=== PATIENT | female | born 1955 | race Caucasian/White ===

== ENCOUNTER → 2017-12-09 | Outpatient (CLI) | payer BC ==
--- NOTE | 2017-12-09 09:43 | WOMENS IMAGING REPORT ---
EXAM DESCRIPTION: U/S ABDOMEN LIMITED COMPLETED DATE/TIME: 12/09/2017 9:28 am REASON FOR STUDY: NAUSEA R11.0; EPIGASTRIC PAIN; R10.13 R11.0 NAUSEA R10.13 EPIGASTRIC PAIN COMPARISON: CT chest 03/03/2012 TECHNIQUE: Dynamic and static grayscale images acquired of the abdomen and recorded on PACS. Additio nal selected color Doppler and spectral images recorded. LIMITATIONS: None. FINDINGS: PANCREAS: Midline pancreas unremarkable LIVER: No masses. Echotexture normal. LIVER VASCULATURE: Normal directional flow of the main portal vein and hepatic veins. GALLBLADDER: Surgically absent ULTRASOUND-DETECTED DIEHL'S SIGN: Not applicable INTRAHEPATIC DUCTS AND COMMON DUCT: CBD and intrahepatic ducts normal caliber. No filling defects. INFERIOR VENA CAVA: Not well seen AORTA: Not well seen RIGHT KIDNEY: Normal size. Normal echogenicity. No solid or suspicious masses. No hydronephrosis. No calcifications. PERITONEAL AND RIGHT PLEURAL SPACE: No ascites or effusions. OTHER: No other significant findings. IMPRESSION: Post cholecystectomy. Midline pancreas unremarkable. No biliary ductal dilatation TECHNICAL DOCUMENTATION: JOB ID: [id number]- All Rights Reserved Reading location - IP/workstation name: [email or web address]
== END ==
LOC: WI 09:01
PROVIDERS: ATTEND Physician Assistant Surgical
DX: R11.0 Nausea (principal); R10.13 Epigastric pain
CPT/HCPCS: 76705

== ENCOUNTER 2019-09-21 12:30 | Emergency (ER) | payer BC ==
--- NOTE | 2019-09-21 13:07 | ER Document Report ---
ED Medical Screen (RME) - General Chief Complaint: Chest Pain Stated Complaint: CHEST DISCOMFORT Time Seen by Provider: 09/21/19 12:57 Primary Care Provider: GAYE NORTON PA-C [Primary Care Provider] - Follow up as needed Mode of Arrival: Ambulatory Information source: Patient Notes: 63-year-old female patient presents emergency department chief complaint of chest pressure. Patient reports symptoms have been ongoing for the last few days. She states this morning the pain or pressure got worse, had associated nausea, dizziness and nearly passed out. Exam: Lung sounds clear and equal bilaterally. Heart sounds S1-S2 present, normal rate, normal rhythm. I have greeted and performed a rapid initial assessment of this patient. A comprehensive ED assessment and evaluation of the patient, analysis of test results and completion of the medical decision making process will be conducted by additional ED providers. I have specifically instructed the patient or family members with the patient to immediately return to any nursing staff should anything change in the patient's condition or with their chief complaint. TRAVEL OUTSIDE OF THE [place] IN LAST 30 DAYS: No - Related Data Allergies/Adverse Reactions: No Known Allergies Allergy (Verified 09/21/19 12:56) Past Medical History Endocrine Medical History: Reports: Hx Hypothyroidism Past Surgical History: Reports: Hx Cholecystectomy Physical Exam - Vital signs Vitals: Temp Pulse Resp BP Pulse Ox 97.9 F 86 16 151/74 H 95 09/21/19 12:53 09/21/19 12:53 09/21/19 12:53 09/21/19 12:53 09/21/19 12:53 Course - Vital Signs Vital signs: Temp Pulse Resp BP Pulse Ox 97.9 F 86 16 151/74 H 95 09/21/19 12:53 09/21/19 12:53 09/21/19 12:53 09/21/19 12:53 09/21/19 12:53 Doctor's Discharge - Discharge Referrals: GAYE NORTON PA-C [Primary Care Provider] - Follow up as needed
--- NOTE | 2019-09-21 13:49 | RADIOLOGY REPORT (SQ) ---
EXAM DESCRIPTION: CHEST 2 VIEWS COMPLETED DATE/TIME: 09/21/2019 1:22 pm REASON FOR STUDY: chest discomfort COMPARISON: 04/07/2016. EXAM PARAMETERS: NUMBER OF VIEWS: two views TECHNIQUE: Digital Frontal and Lateral radiographic views of the chest acquired. RADIATION DOSE: NA LIMITATIONS: none FINDINGS: LUNGS AND PLEURA: No opacities, masses or pneumothorax. No pleural effusion. MEDIASTINUM AND HILAR STRUCTURES: No masses or contour abnormalities. HEART AND VASCULAR STRUCTURES: Heart normal size. No evidence for failure. BONES: No acute findings. HARDWARE: None in the chest. OTHER: No other significant finding. IMPRESSION: NO ACUTE RADIOGRAPHIC FINDING IN THE CHEST. TECHNICAL DOCUMENTATION: JOB ID: [id number] [employer] All Rights Reserved Reading location - IP/workstation name: [email or web address]
[2019-09-21 13:54] LABS: ABSOLUTE LYMPHOCYTES (AUTO) 1.5 10^3/uL (0.5-4.7); ABSOLUTE MONOCYTES (AUTO) 0.5 10^3/uL (0.1-1.4); ABSOLUTE NEUT (AUTO) 3.9 10^3/uL (1.7-8.2); BASOPHILS % (AUTO) 0.6 % (0-2); EOSINOPHILS % (AUTO) 0.8 % (0-6); HEMATOCRIT 40.9 % (36.0-47.0); HEMOGLOBIN 13.9 g/dL (12.0-15.5); MEAN CORPUSCULAR HEMOGLOBIN 29.1 pg (27.0-33.4); MEAN CORPUSCULAR VOLUME 86 fl (80-97); MONOCYTES % (AUTO) 7.8 % (3-13); PLATELET COUNT 210 10^3/uL (150-450); RED BLOOD COUNT 4.77 10^6/uL (3.72-5.28); RED CELL DISTRIBUTION WIDTH 13.4 % (11.5-14.0); SEGMENTED NEUTROPHILS % (AUTO) 65.8 % (42-78); TOTAL CELLS COUNTED % (AUTO) 100 %
[2019-09-21 14:10] LABS: ALBUMIN 4.1 g/dL (3.5-5.0); ALKALINE PHOSPHATASE 84 U/L (38-126); ANION GAP 7 (5-19); ASPARTATE AMINO TRANSFERASE 30 U/L (14-36); BILIRUBIN,DIRECT 0.2 mg/dL (0.0-0.4); BILIRUBIN,TOTAL 0.5 mg/dL (0.2-1.3); BLOOD UREA NITROGEN 17 mg/dL (7-20); CALCIUM 9.8 mg/dL (8.4-10.2); CARBON DIOXIDE 28 mmol/L (22-30); CHLORIDE 104 mmol/L (98-107); GLUCOSE 100 mg/dL (75-110); POTASSIUM 4.9 mmol/L (3.6-5.0); TOTAL PROTEIN 7.1 g/dL (6.3-8.2)
[2019-09-21] MEDS ORDERED: NITROGLYCERIN 0.4 MG/TAB 25 TAB/BOTTLE SL PRN (16:26)
--- NOTE | 2019-09-21 16:30 | ER Document Report ---
ED General - General Chief Complaint: Chest Pain Stated Complaint: CHEST DISCOMFORT Time Seen by Provider: 09/21/19 12:57 Primary Care Provider: GAYE NORTON PA-C [COMMUNITY BASED STAFF] - Follow up as needed Mode of Arrival: Ambulatory TRAVEL OUTSIDE OF THE [place] IN LAST 30 DAYS: No - Related Data Allergies/Adverse Reactions: No Known Allergies Allergy (Verified 09/21/19 12:56) Home Medications: synthroid 0.125 Past Medical History - General Information source: Patient - Social History Smoking Status: Former Smoker Family History: Reviewed & Not Pertinent Patient has suicidal ideation: No Patient has homicidal ideation: No Endocrine Medical History: Reports: Hx Hypothyroidism Past Surgical History: Reports: Hx Cholecystectomy Physical Exam - Vital signs Vitals: Temp Pulse Resp BP Pulse Ox 97.9 F 86 16 151/74 H 95 09/21/19 12:53 09/21/19 12:53 09/21/19 12:53 09/21/19 12:53 09/21/19 12:53 - Notes Notes: Patient presents emerge department with chest pain that started earlier today. Pain is located left anterior chest and under her shoulder. Describes as a pressure sensation. Gets short of breath and diaphoretic with a little bit of n ausea but no vomiting. She also had a heart rapid heart rate with this. The pain did not seem to change at all with movements. She reports similar episodes on Saturday and Saturday that felt like indigestion that she took Gas-X for with temporary relief but then later told me that the pain never went away. Is somewhat vague about her symptoms said the pain lasted all day but says is been like increasing and decreasing for the past 2 days. Not having discomfort yesterday but felt increasing fatigue and slept most of the day. She denies any fevers or cough associated with this. He did report feeling slightly lightheaded earlier today no abdominal pain or diarrhea His medical history significant for thyroid disease and elevated cholesterol diet-controlled no diabetes hypertension or heart disease Social history smokes but quit years ago no alcohol Family history dad and brothers had heart disease in their early 60s Review of systems pertinent positives and negatives in HPI otherwise all the systems were reviewed and acutely negative Surgical history includes cholecystectomy PHYSICIAN EXAM -vital signs are noted triage note and note from triage reviewed GENERAL: Well-appearing, well-nourished and in __no acute distress____ HEAD: Atraumatic, normocephalic. EYES: Pupils equal round and reactive to light, extraocular movements intact, sclera anicteric, conjunctiva are normal. ENT: nares patent, oropharynx clear without exudates. Moist mucous membranes. NECK: supple without lymphadenopathy LUNGS: Breath sounds clear to auscultation bilaterally and equal. No wheezes rales or rhonchi. HEART: Regular rate and rhythm without murmurs ABDOMEN: Soft, nontender, normoactive bowel sounds. EXTREMITIES: No deformity, no edema. NEUROLOGICAL: Alert and oriented x4. Cranial nerves he has symmetrical smile facies and shoulder shrug. His motor strength is 5/5 bilaterally in the upper and lower extremities. Toes downgoing. Sensation is intact to light touch is a negative Romberg PSYCH: Normal mood, normal affect. SKIN: Warm, Dry, normal turgor, no rashes or lesions noted. BACK-nontender in the midline Differential diagnosis angina reflux hyper thyroid Course - Re-evaluation Re-evalutation: 09/21/19 21:35 ED patient is remained stable she been on surveillance monitor with notes of arrhythmias aorta nitroglycerin but she indicates that her pain had resolved but no additional signs of pain. Her labs been reviewed he states the TSH is slightly low but her free T4 was normal Medical decision making patient presents with pain over the left anterior chest that is been pretty much constant for the test 2 to 3 days. He has no significant risk factors for heart disease her heart score places her at low risk looks well and I think she can be discharged home. I see no life- threatening cause of her chest pain I discussed the scoring system with the patient and the risk of cardiovascular within the next 2 months. She is comfortable going home with follow-up with her family doctor At this time there is no indication for admission. I have discussed the findings with patient/family with return precautions and follow-up recommendations. Verbal discharge instructions given at the bedside and opportunity for questions given. Medication warnings were given if indicated. Patient is in agreement with this plan and has verbalized understanding of return precautions and the need for primary care follow-up as directed.. - Vital Signs Vital signs: Temp Pulse Resp BP Pulse Ox 97.7 F 86 16 122/65 99 09/21/19 18:00 09/21/19 12:53 09/21/19 18:00 09/21/19 18:00 09/21/19 18:00 - Laboratory Result Diagrams: 09/21/19 13:38 09/21/19 13:38 Laboratory results interpreted by me: 09/21/19 15:58 TSH 0.06 L - EKG Interpretation by Me Additional EKG results interpreted by me: 09/21/19 16:25 Her initial EKG shows a normal sinus rhythm with a rate of 97 normal axis and QRS the QT prolonged at 0.46 this is new from previous EKG from 201509/21/19 16:55 EKG again shows a normal sinus rhythm no change from the first Discharge - Discharge Clinical Impression: Palpitations Chest pain Qualifiers: Chest pain type: other chest pain Qualified Code(s): R07.89 - Other chest pain Condition: Stable Disposition: HOME, SELF-CARE Instructions: Chest Pain of Unclear Cause ([facility]) Additional Instructions: Please review the discharge instructions, they will tell you about your disease/injury and what you need to return to the ED for Return to the ED if you feel worse or can follow-up with your family doctor Avoid fatty greasy foods Return for shortness of breath persistent rapid heart rate fever greater than 101 Follow-up with your family doctor on as scheduled Referrals: GAYE NORTON PA-C [COMMUNITY BASED STAFF] - Follow up as needed
--- NOTE | 2019-09-21 17:14 | EKG REPORT ---
SEVERITY:- NORMAL ECG - SINUS RHYTHM : Confirmed by: Ninfa Guaman MD 21-Sep-2019 17:14:09
--- NOTE | 2019-09-21 17:14 | EKG REPORT ---
SEVERITY:- ABNORMAL ECG - SINUS RHYTHM LEFT VENTRICULAR HYPERTROPHY : Confirmed by: Ninfa Guaman MD 21-Sep-2019 17:14:06
[2019-09-21 19:05] VITALS: BP 122/65
== END 2019-09-21 19:05 | disposition home or self-care (01) ==
LOC: ER 12:30
DX: R00.2 Palpitations (principal); R07.89 Other chest pain; M25.512 Pain in left shoulder; Z87.891 Personal history of nicotine dependence
CPT/HCPCS: 36415; 71046; 80053; 83690; 84439; 84443; 84484; 85025; 93005; 93010; 99285

== ENCOUNTER 2019-11-05 08:58 | Day surgery (SDC) | payer BC ==
[~2019-11-05 08:58] MED LIST: LACTATED RINGERS 1000 ML IV PRN
[2019-11-05] MEDS ORDERED: CEFAZOLIN 1 GM/D5W RTU 1 GM/50 ML RTUPB IV ONE (09:18)
[2019-11-05] MEDS ORDERED: MIDAZOLAM 2 MG/2 ML INJ ONE (10:00)
[2019-11-05] MEDS ORDERED: FENTANYL CITRATE INJ/PF 100 MCG/2 ML AMPUL ONE (10:00)
[2019-11-05] MEDS ORDERED: PROPOFOL INJ 200 MG/20 ML VIAL IV ONE (10:01)
[2019-11-05] MEDS ORDERED: LIDOCAINE 2% INJ-PF (20 MG/ML) 10 ML AMPUL ONE (10:01)
[2019-11-05] MEDS ORDERED: BUPIVACAINE INJ/PF LIPOSOME/PF 266 MG/20 ML SDV ONE (10:08)
[2019-11-05] MEDS ORDERED: BUPIVACAINE HCL 0.5%-EPI 1:200000 INJ/PF 30 ML VIAL ONE (10:08)
[2019-11-05] MEDS ORDERED: BUPIVACAINE HCL 0.25 % INJ/PF (2.5 MG/1 ML) 30 ML VIAL ONE (10:08)
[2019-11-05] MEDS ORDERED: LIDOCAINE 1%/EPINEPHRINE INJ 20 ML VIAL ONE (10:38)
[2019-11-05] MEDS ORDERED: DIPHENHYDRAMINE HCL 50 MG/ML VIAL IV PRN (10:40)
[2019-11-05] MEDS ORDERED: PROMETHAZINE HCL INJ 25 MG/1 ML VIAL IV PRN ×2 (10:40)
[2019-11-05] MEDS ORDERED: FENTANYL CITRATE INJ/PF 100 MCG/2 ML AMPUL IV PRN ×3 (10:40)
[2019-11-05] MEDS ORDERED: OXYCODONE-ACETAMINOPHEN 5-325 MG TABLET PO PRN ×3 (10:40→11:07)
[2019-11-05] MEDS ORDERED: MEPERIDINE HCL/PF INJ 25 MG/1 ML DISP.SYRIN IV PRN (10:40)
[2019-11-05] MEDS ORDERED: MORPHINE SULFATE 10 MG/ML INJ IV PRN (10:40)
--- NOTE | 2019-11-05 10:59 | Operative Report ---
Nonrecallable Operative Report DATE OF SURGERY: 11/05/19 PREOPERATIVE DIAGNOSIS: Posterior neck mass POSTOPERATIVE DIAGNOSIS: Posterior neck lipoma OPERATION: Excision of posterior neck lipoma SURGEON: KULDEEP HENDERSON ANESTHESIA: Moderate Sedation TISSUE REMOVED OR ALTERED: Neck lipoma COMPLICATIONS: None ESTIMATED BLOOD LOSS: 5 cc INTRAOPERATIVE FINDINGS: Large posterior neck lipoma PROCEDURE: Patient was brought to the operating room and awake alert stable condition placed in the operative table in a left lateral decubitus position given IV sedation for the procedure. The posterior neck was prepped and draped in usual sterile fashion for the procedure. After anesthetizing the skin over the mass with 1% lidocaine with epinephrine a transverse incision was made approximately 6 cm long. Dissection was carried down through subcutaneous tissue with Bovie cautery. The inferior and superior flap were raised with Bovie cautery. The mass which appeared to be lipoma was dissected free from the subcutaneous tissue and the skin splenius capitis muscles. After excision of the mass hemostasis was obtained with Bovie cautery. The subcutaneous tissue was reapproximated with interrupted 3-0 Vicryl sutures. Skin was then closed with intracuticular 4-0 Biosyn. Steri-Strips were applied which completed the procedure. Estimated blood loss was less than 5 cc. Patient was transferred recovery in stable condition no complications
--- NOTE | 2019-11-05 11:05 | Discharge Summary ---
Discharge Summary (SDC) - Discharge Final Diagnosis: Posterior neck lipoma Date of Surgery: 11/05/19 Discharge Date: 11/05/19 Condition: Good Prescriptions: Tramadol HCl [Ultram 50 mg Tablet] 50 mg PO Q6HP PRN #40 tablet PRN Reason: Referrals: ABRIL SALMON MD [Primary Care Provider] - Discharge Diet: As Tolerated Report the Following to Your Physician Immediately: Shortness of Breath, Increase in Pain, Unusual Bleeding - Patient needs a follow-up in surgical clinic with me in 10 days
[2019-11-05] MEDS ORDERED: ONDANSETRON HCL INJ/PF 4 MG/2 ML SDV ONE (12:20)
[2019-11-05 12:50] VITALS: BP 125/61
== END 2019-11-05 12:35 | disposition home or self-care (01) ==
LOC: OROUT 08:58
PROVIDERS: ATTEND Surgery
DX: D17.0 Benign lipomatous neoplasm of skin and subcutaneous tissue of head, face and neck (principal); E07.9 Disorder of thyroid, unspecified; Z79.899 Other long term (current) drug therapy; E78.00 Pure hypercholesterolemia, unspecified
CPT/HCPCS: 00300; 21554; J2250; J0690; J3010; J3490 ×2; J2405; J2704; 300; C9290